=== PATIENT | male | born 1945 | race Caucasian/White ===

== ENCOUNTER 2024-03-12 23:10 | Emergency (ER) | payer OTHER ==
[2024-03-13] MEDS ORDERED: VANCOMYCIN 1 GM/VIAL ONE (00:05)
[2024-03-13] MEDS ORDERED: NA CHLORIDE 0.9% 250 ML ONE (00:05)
[2024-03-13 00:46] LABS: Absolute Eosinophils 0.4 K/uL (0-0.5); Absolute Lymphocytes (CBC) 2.1 K/uL (0.7-4.9); Absolute Monocytes 0.7 K/uL (0.1-1.3); Absolute Neutrophil 5.8 K/uL (1.8-8.0); Basophils % 0.4 % (0-1.3); Eosinophils % 4.7 % (0-4.4); Hematocrit 41.9 % (39.6-49.0); Hemoglobin 14.2 g/dL (13.6-17.9); MCV 85.3 fL (80-100); MPV 8.6 fL (7.6-11.3); Monocytes % 7.3 % (3.3-12.3); Neutrophils % 64.6 % (41.7-73.7); Platelets 200 thou/uL (152-406); RBC Red Blood Cell Count 4.91 M/uL (4.33-5.43); Red Cell Distribution Width 13.9 % (12.1-15.2)
[2024-03-13 00:48] LABS: PT Prothrombin Time 11.4 SECONDS (9.4-12.5); Protime INR 1.09
[2024-03-13 01:02] LABS: Albumin 3.3 g/dL (3.4-5.0); Albumin/Globulin Ratio 0.7 (1.1-1.8); Anion Gap 9.3 mEq/L (5.0-15.0); Bilirubin Direct 0.2 mg/dL (0-0.2); Bilirubin Indirect, Calculated 0.3 mg/dL (0.2-0.8); Bilirubin Total 0.5 mg/dL (0.2-1.0); Globulin 4.6 g/dL (2.3-3.5); Magnesium 2.3 mg/dL (1.6-2.4); Potassium 4.3 mEq/L (3.5-5.1); Protein, Total 7.9 g/dL (6.4-8.2)
[2024-03-13 01:08] LABS: Troponin High Sensitivity 11296.1 pg/mL (<58.9)
--- NOTE | 2024-03-13 02:04 | RAD REPORT ---
EXAM DESCRIPTION: UPPER EXTREMITY VENOUS UNILATE RadLex: US UPPER EXTREMITY VEINS LIMITED FOLLOW-UP UNILATERAL CLINICAL HISTORY: 79 years Male; SWELLING TECHNIQUE: Spectral analysis and color/grayscale sonographic images of the right upper extremity was obtained ut ilizing a high-frequency linear array transducer supplemented with color Doppler, compression and augmentation techniques. COMPARISON: None. FINDINGS: Internal jugular: Patent Subclavian: Patent Axillary: Patent Brachial: Patent. Basilic: Patent Cephalic: Not visualized. Radial: Patent Ulnar: Patent IMPRESSION: No sonographic evidence for deep venous thrombosis in the right upper extremity, given above limitati ons. Electronically signed by: Marco Glaser MD 03/13/2024 01:47 AM [facility] Z9 Due to temporary technical issues with the PACS/Myla scribe reporting system, reports are being signed by the in-house radiologist without review as a courtesy to ensure prompt reporting the interpreting radiologist is fully responsible for the content of the report. Transcribed Date/Time: 03/13/2024 2:04 AM
--- NOTE | 2024-03-13 04:28 | ER ---
Nurse's Notes [facility] Name: Owen Cano Age: 79 yrs Sex: Male : 1945 Arrival Date: 03/12/2024 Time: 23:10 Bed 8 Private MD: Diagnosis: Cellulitis Presentation: 03/12 23:42 Chief complaint: Patient states: PT STATES HE HAD A RIGHT CAROID ARTERY STENT..LAST br2 (RIGHT WRIST) MONDAY. PT STATES HE HE REMOVED BANDAGE ON MONDAY RIGHT WRIST AREA POSTERIOR AND ANTERIOR HAVE DEVELOPED BLISTERS AND PARTIAL SKIN TEAR. Coronavirus screen: Client denies travel out of the [place] in the last 14 days. Ebola Screen: Patient denies exposure to infectious person. Initial Sepsis Screen: Does the patient meet any 2 criteria? No. Patient's initial sepsis screen is negative. Does the patient have a suspected source of infection? No. Patient's initial sepsis screen is negative. Risk Assessment: Do you want to hurt yourself or someone else? Patient reports no desire to harm self or others. Onset of symptoms is unknown. 23:42 Method Of Arrival: Wheelchair br2 23:42 Acuity: BENNY 3 br2 Triage Assessment: 03/13 00:10 General: Appears uncomfortable, Behavior is calm, cooperative. Pain: Complains of pain br2 in right wrist Pain currently is 3 out of 10 on a pain scale. Derm: Reports tingling, BLISTERS. Historical: - Allergies: 00:10 Clindamycin; br2 - Immunization history:: Adult Immunizations up to date. - Infectious Disease History:: CDIFF, . - Social history:: Smoking status: Patient denies any tobacco usage or history of. Screenin/28 23:42 [facility] ED Fall Risk Assessment (Adult) History of falling in the last 3 months, br2 including since admission No falls in past 3 months (0 pts) Confusion or Disorientation No (0 pts) Intoxicated or Sedated No (0 pts) Impaired Gait No (0 pts) Mobility Assist Device Used No (0 pt) Altered Elimination No (0 pt) Score/Fall Risk Level 0 - 2 = Low Risk Oriented to surroundings. Abuse screen: Denies threats or abuse. Denies injuries from another. Nutritional screening: No deficits noted. Tuberculosis screening: No symptoms or risk factors identified. Assessment: 23:42 Reassessment: SEE TRIAGE ASSESSMENT. br2 Vital Signs: 23:42 BP 174 / 79; Pulse 72; Resp 18; Temp 98.4; Pulse Ox 99% ; br2 03/13 00:44 BP 137 / 80; Pulse 66; Resp 18; Temp 97.2; Pulse Ox 97% on R/A; br2 01:50 BP 154 / 82; Pulse 73; Resp 18; Pulse Ox 100% on R/A; br2 02:04 BP 154 / 82; Pulse 64; Resp 18; Pulse Ox 96% ; br2 03:43 BP 151 / 77; Pulse 67; Resp 17; Pulse Ox 99% ; br2 ED Course: 03/12 23:13 Patient arrived in ED. im 23:17 Brenda Day MD is Attending Physician. sp3 23:42 Vidhi Tang RN is Primary Nurse. br2 23:42 Inserted saline lock: 20 gauge in left antecubital area, using aseptic technique. Blood br2 collected. Flushed with 10 mL NS. 23:42 Arm band placed on left wrist. br2 23:42 Patient has correct armband on for positive identification. Bed in low position. Call br2 light in reach. Side rails up X 1. 03/13 00:10 Triage completed. br2 00:30 First set of blood cultures drawn by me. vk 00:35 Basic Metabolic Panel Sent. vk 00:35 CBC with Diff Sent. vk 00:35 LFT's Sent. vk 00:35 Magnesium Sent. vk 00:35 Troponin HS Sent. vk 00:35 PT-INR Sent. vk 00:44 UPPER EXTREMITY VENOUS UNILATE In Process Unspecified. EDMS 00:45 Second set of blood cultures drawn. vk 00:51 Initial lab(s) drawn, by me, sent to lab. vk 00:51 EKG done, by ED staff. vk 03:44 No provider procedures requiring assistance completed. IV discontinued, intact, br2 bleeding controlled, No redness/swelling at site. Pressure dressing applied. Administered Medications: 00:42 Drug: vancoMYCIN IVPB 1 grams IVPB once over 2 hrs Route: IVPB; Infused Over: 2 hrs; mt4 Site: left antecubital; 02:45 Follow up: Response: No adverse reaction; IV Status: Completed infusion; IV Intake: br2 250ml Medication: 03:45 VIS not applicable for this client. br2 Intake: 02:45 IV: 250ml; Total: 250ml. br2 Outcome: 03:18 Discharge ordered by . sp3 03:45 Discharged to home ambulatory, br2 03:45 Condition: improved 03:45 Discharge instructions given to patient, Instructed on discharge instructions, follow up and referral plans. medication usage, Demonstrated understanding of instructions, follow-up care, medications, Prescriptions given X 2, 03:46 Patient left the ED. br2 Signatures: Dispatcher [employer] EDBrenda Herrera MD MD sp3 Yary Light Vivian vk Tath, Molinec RN RN mt4 Vidhi Tang, RN RN br2
--- NOTE | 2024-03-13 04:28 | EDPHYS ---
Physician Documentation [facility] Name: Owen Cano Age: 79 yrs Sex: Male : 1945 Arrival Date: 03/12/2024 Time: 23:10 Bed 8 Private MD: ED Physician Brenda Day HPI: 03/12 23:59 This 79 yrs old Male presents to ER via Unassigned with complaints of Wound Check - sp3 right arm. 23:59 This 71-year-old male with history of CAD with 2 RCA stents placed 5 days ago at [address], hypertension, hyperlipidemia, currently on aspirin and Plavix and is compliant, now presents to the ED with chief complaint right upper extremity lesions, rash and blisters subsequent to his catheterization initially starting at the catheterization arterial access site. Patient is concerned about cellulitis and staph infection. He denies any allergic reaction in the past or allergic reaction to tape or dressings. Area is not pruritic. Does state that his entire upper extremity has increased in swelling. Review of systems negative for fever, headache, chest pain, shortness of breath, abdominal pain, rash anywhere else, known sick contacts, travel history, or any other signs or symptoms on ROS at this time.. Historical: - Allergies: 03/13 00:10 Clindamycin; br2 - Immunization history:: Adult Immunizations up to date. - Infectious Disease History:: CDIFF, . - Social history:: Smoking status: Patient denies any tobacco usage or history of. ROS: 00:03 Constitutional: Negative for fever, chills, and weight loss, Eyes: Negative for injury, sp3 pain, redness, and discharge, Neck: Negative for injury, pain, and swelling, Cardiovascular: Negative for chest pain, palpitations, and edema, Respiratory: Negative for shortness of breath, cough, wheezing, and pleuritic chest pain, Abdomen/GI: Negative for abdominal pain, nausea, vomiting, diarrhea, and constipation, Back: Negative for injury and pain, Neuro: Negative for headache, weakness, numbness, tingling, and seizure, Psych: Negative for depression, anxiety, suicide ideation, homicidal ideation, and hallucinations, Allergy/Immunology: Negative for hives, rash, and allergies, Endocrine: Negative for neck swelling, polydipsia, polyuria, polyphagia, and marked weight changes, Hematologic/Lymphatic: Negative for swollen nodes, abnormal bleeding, and unusual bruising, 00:03 All other systems are negative, Exam: 00:03 Constitutional: This is a well developed, well nourished patient who is awake, alert, sp3 and in no acute distress. Head/Face: Normocephalic, atraumatic. Eyes: Pupils equal round and reactive to light, extra-ocular motions intact. Lids and lashes normal. Conjunctiva and sclera are non-icteric and not injected. Cornea within normal limits. Periorbital areas with no swelling, redness, or edema. ENT: Nares patent. No nasal discharge, no septal abnormalities noted. External auditory canals are clear. Oropharynx with no redness, swelling, or masses, exudates, or evidence of obstruction, uvula midline. Mucous membranes moist. Neck: Trachea midline, no thyromegaly or masses palpated, and no cervical lymphadenopathy. Supple, full range of motion without nuchal rigidity, or vertebral point tenderness. No Meningismus. Chest/axilla: Normal chest wall appearance and motion. Nontender with no deformity. No lesions are appreciated. Cardiovascular: Regular rate and rhythm with a normal S1 and S2. No gallops, murmurs, or rubs. Normal PMI, no JVD. No pulse deficits. Respiratory: Lungs have equal breath sounds bilaterally, clear to auscultation and percussion. No rales, rhonchi or wheezes noted. No increased work of breathing, no retractions or nasal flaring. Abdomen/GI: Soft, non-tender, with normal bowel sounds. No distension or tympany. No guarding or rebound. No evidence of tenderness throughout. Back: No spinal tenderness. No costovertebral tenderness. Full range of motion. Neuro: Awake and alert, GCS 15, oriented to person, place, time, and situation. Cranial nerves II-XII grossly intact. Motor strength 5/5 in all extremities. Sensory grossly intact. Cerebellar exam normal. Normal gait. Psych: Awake, alert, with orientation to person, place and time. Behavior, mood, and affect are within normal limits. 00:03 Skin: Right upper extremity volar and dorsal surface with redness/erythema and 3 blisters with the largest at 1.5 cm in diameter and circular/spherical shape. No signs of urticaria or vesicles. Distal neurovascular exam is normal.. 00:20 ECG was reviewed by the Attending Physician. EKG demonstrates normal sinus rhythm at 64 sp3 bpm with first-degree AV block with CT interval 230 ms normal axis, normal QRS, nonspecific ST/T changes without evidence of acute ischemia. Vital Signs: 03/12 23:42 BP 174 / 79; Pulse 72; Resp 18; Temp 98.4; Pulse Ox 99% ; br2 03/13 00:44 BP 137 / 80; Pulse 66; Resp 18; Temp 97.2; Pulse Ox 97% on R/A; br2 01:50 BP 154 / 82; Pulse 73; Resp 18; Pulse Ox 100% on R/A; br2 02:04 BP 154 / 82; Pulse 64; Resp 18; Pulse Ox 96% ; br2 03:43 BP 151 / 77; Pulse 67; Resp 17; Pulse Ox 99% ; br2 MDM: 03/12 23:27 Medical Screening Exam initiated sp3 03/13 00:04 Data reviewed: vital signs, nurses notes, lab test result(s), radiologic studies. ED sp3 course: 71-year-old male status post heart catheterization with access via right upper extremity now with blisters and erythema at the the right wrist area. Differential diagnosis includes cellulitis, allergic reaction, DVT, among others. Workup will include general labs, cultures, ultrasound and IV vancomycin. Disposition pending workup and patient course. Patient has appointment with PCP tomorrow.. 03:17 ED course: Labs reviewed and are within normal limits. We will safely discharge patient sp3 home on Bactrim and clindamycin. 03:56 ED course: Troponin was at 11,000, presumably from his visit last week. Patient does sp3 not know what his troponin level was at that time. Currently patient is in no acute distress, resting comfortably with no chest pain, no shortness of breath, no anginal equivalents and no distress whatsoever. I had a long conversation with him regarding the importance of finding out his prior troponin levels and he will do so. He also understands to return here for any of the after mentioned symptoms above. EKG demonstrated no acute ischemic changes.. 03/12 23:57 Order name: Basic Metabolic Panel sp3 03/12 23:57 Order name: CBC with Diff sp3 03/12 23:57 Order name: LFT's sp3 03/12 23:57 Order name: Magnesium sp3 03/12 23:57 Order name: PT-INR sp3 03/12 23:57 Order name: Troponin HS sp3 03/12 23:57 Order name: Blood Culture Adult (2) sp3 03/13 00:10 Order name: UPPER EXTREMITY VENOUS UNILATE EDMS 03/12 23:57 Order name: EKG - Nurse/Tech; Complete Time: 00:19 sp3 03/12 23:57 Order name: IV Saline Lock; Complete Time: 00:34 sp3 03/12 23:57 Order name: Labs collected and sent; Complete Time: 00:35 sp3 Administered Medications: 00:42 Drug: vancoMYCIN IVPB 1 grams IVPB once over 2 hrs Route: IVPB; Infused Over: 2 hrs; mt4 Site: left antecubital; 02:45 Follow up: Response: No adverse reaction; IV Status: Completed infusion; IV Intake: br2 250ml Disposition Summary: 03/13/24 03:18 Discharge Ordered Notes: Location: Home sp3 Condition: Stable sp3 Diagnosis - Cellulitis sp3 Followup: sp3 - With: Private Physician - When: Upon discharge from the Emergency Department - Reason: Recheck today's complaints, Continuance of care Discharge Instructions: - Discharge Summary Sheet sp3 - Cellulitis, Adult sp3 Forms: - Medication Reconciliation Form sp3 - Antibiotic Education sp3 - Prescription Opioid Use sp3 - Patient Portal Instructions sp3 - Leadership Thank You Letter sp3 Prescriptions: - mupirocin 2 % Topical ointment - apply 1 application TOPICAL route 2 times per day; 4 Each; Refills: 0, Product sp3 Selection Permitted - Bactrim DS 800-160 mg Oral Tablet - take 1 tablet ORAL route every 12 hours for 10 days; 20 tablet; Refills: 0, sp3 Product Selection Permitted Signatures: Dispatcher [employer] EDBrenda Herrera MD MD sp3 Haylee Hernandez RN RN mt4 Vidhi Tang RN RN br2 Corrections: (The following items were deleted from the chart) 03/12 23:58 23:58 BASIC METABOLIC PANEL+C.LAB.BRZ ordered. EDMS EDMS 23:58 23:58 CBC+H.LAB.BRZ ordered. EDMS EDMS 23:58 23:58 HEPATIC FUNCTION+C.LAB.BRZ ordered. EDMS EDMS 23:58 23:58 MAGNESIUM+C.LAB.BRZ ordered. EDMS EDMS 23:58 23:58 PROTIME (+INR)+COAG.LAB.BRZ ordered. EDMS EDMS 23:58 23:58 Troponin High Sensitivity+C.LAB.BRZ ordered. EDMS EDMS 23:58 23:58 Wound Culture+BA.LAB.BRZ ordered. EDMS EDMS 23:58 23:58 BLOOD CULTURE*+BA.LAB.BRZ ordered. EDMS EDMS 03/13 00:10 00:02 Extremity Venous Uni Ltd+US.RAD.BRZ ordered. EDMS EDMS
[2024-03-13 12:09] VITALS: TEMP 97.2
[2024-03-13 12:12] VITALS: BP 151/77; O2SAT 99
== END 2024-03-13 03:46 | disposition home or self-care (01) ==
LOC: ER 23:10
DX: L03.113 Cellulitis of right upper limb (principal); Z95.5 Presence of coronary angioplasty implant and graft
CPT/HCPCS: 87040 ×2; 85025; 80048; 36415; 83735; 85610; 80076; 84484; 93971; J7050